=== PATIENT | female | born 2000 | race Caucasian/White ===

== ENCOUNTER 2025-01-14 21:03 | Emergency (ER) | payer OTHER ==
[2025-01-14 22:06] LABS: APPEARANCE,URINE CLEAR (CLEAR); GLUCOSE,URINE NEGATIVE (NEGATIVE); OCCULT BLOOD,URINE TRACE-INTACT (NEGATIVE)
[2025-01-14 22:16] LABS: EPITHELIAL CELLS,URINE FEW /HPF (NOT SEEN)
[2025-01-14] MEDS ORDERED: Sodium Chloride 0.9% 10 ML Syringe FLUSH PRN (22:37)
[2025-01-14 22:58] LABS: BASOPHILS PERCENT AUTO 0.2 % (0.0-1.0); EOSINOPHILS PERCENT AUTO 1.1 % (1.0-3.0); LYMPHOCYTES PERCENT AUTO 23.5 % (20.5-50.1); MONOCYTES PERCENT AUTO 8.4 % (2-8); NEUTROPHILS PERCENT AUTO 66.8 % (42.2-75.2); PLATELET COUNT,PLT 253 10^3/uL (150-450); RED BLOOD CELL COUNT 3.79 10^6/uL (4.2-5.4); WHITE BLOOD CELL COUNT,WBC 12.5 10^3/uL (5.0-10.0)
[2025-01-14] MEDS: Ondansetron 4 MG/2 ML SDV IVPUSH ONE (23:05)
[2025-01-14 23:19] LABS: ALANINE AMINOTRANSFERASE,ALT 28 U/L (14-59); ASPARTATE AMNIOTRANSFERASE,AST 14 U/L (15-37); BILIRUBIN TOTAL 0.2 mg/dL (0.2-1.0); BLOOD UREA NITROGEN,BUN 7 mg/dL (7-18); CARBON DIOXIDE,CO2 26 mmol/L (21-32); CHLORIDE,CL 104 mmol/L (98-107); CREATININE 0.44 mg/dL (0.55-1.02); EST CRCL DRUG DOSING (CG) 151.34 mL/min; GLUCOSE RANDOM 92 mg/dL (70-99); POTASSIUM,K 3.6 mmol/L (3.5-5.1); PROTEIN TOTAL,TP 6.3 g/dL (6.4-8.2); SODIUM,NA 137 mmol/L (136-145)
[2025-01-14 23:20] LABS: A/G RATIO 1.10; ESTIMATED GFR 140 mL/min (>=60)
[2025-01-14 23:22] LABS: LACTIC ACID 0.8 mmol/L (0.4-2.0)
[2025-01-14 23:29] LABS: PTT,PARTIAL THROMBOPLSTIN TIME 24.4 SEC (22.0-34.0)
[2025-01-14 23:31] LABS: INR 0.9 (0.9-1.2)
== END 2025-01-15 01:00 | disposition home or self-care (01) ==
LOC: DL.ED 21:03
DX: O99.351 Diseases of the nervous system complicating pregnancy, first trimester (principal); M54.81 Occipital neuralgia; Z79.899 Other long term (current) drug therapy; Z3A.11 11 weeks gestation of pregnancy
CPT/HCPCS: 36415; 80053; 81001; 81025; 83605; 84702; 85025; 85610; 85730; 86140; 87040; 87491; 87563; 87591; 96374; 99283; 99284; J2405